=== PATIENT | male | born 1935 | race Caucasian/White ===

== ENCOUNTER 2021-12-17 17:13 | Inpatient (IN) ==
[2021-12-17 18:11] LABS: Basophils # 0.1 K/mcL (0.0-0.2); Basophils % 0.5 %; Eosinophils # 0.2 K/mcL (0.0-0.6); Eosinophils % 1.6 %; Hematocrit 33.4 % (37.5-50.1); Hemoglobin 11.1 g/dL (12.9-16.9); Immature Granulocytes % 0.5 % (0-4); Lymphocytes # 1.1 K/mcL (0.6-4.6); Lymphocytes % 10.3 %; Mean Corpuscular HGB Conc 33.2 g/dL (31.6-35.5); Mean Corpuscular Hemoglobin 30.8 pg (28.0-33.3); Mean Corpuscular Volume 92.8 fL (83.0-100.0); Mean Platelet Volume 10.5 fL (9.4-12.4); Monocytes # 1.3 K/mcL (0.0-1.3); Monocytes % 12.1 %; Neutrophils # 8.1 K/mcL (1.6-8.9); Platelet Count 206 K/mcL (140-400); Red Cell Distribution Width 12.7 % (11.5-14.5); White Blood Count 10.8 K/mcL (4.3-11.1)
[2021-12-17 18:33] LABS: Calcium 9.1 mg/dL (8.6-10.3); Potassium 3.6 mEq/L (3.5-5.1)
[2021-12-17 18:52] LABS: Thyroid Stimulating Hormone 5.964 mcIU/mL (0.340-5.600); Troponin I 0.05 ng/mL (< 0.04)
[2021-12-17] MEDS ORDERED: *HR* Metoprolol 5 MG/5 ML VIAL IVP ONE (20:13)
[2021-12-17] MEDS ORDERED: Aspirin 81 MG TAB.CHEW PO ONE (20:14)
[2021-12-17] MEDS ORDERED: Naloxone 0.4 MG/ML INJ IVP PRN (20:52)
[2021-12-17] MEDS ORDERED: Perflutren Lipid Microsphere 1.3 ML in 0.9 % Sodium Chloride 8.7 ML IVP PRN (21:00)
[2021-12-17] MEDS ORDERED: *HR* Heparin 5,000 UNIT/ML VIAL IVP PRN ×2 (21:59)
[2021-12-17] MEDS: Heparin 25,000UNIT/250ML 1/2NS 25,000 UNIT/250 ML IV.SOLN IVC SCH (23:35)
[2021-12-18] MEDS ORDERED: *HR* Metoprolol 5 MG/5 ML VIAL IVP ONE (03:04)
[2021-12-18] MEDS ORDERED: Dextrose Gel 15 GM/37.5 ML TUBE PO PRN ×2 (04:06)
[2021-12-18] MEDS ORDERED: D5% in Water 1,000 ML IVC PRN (04:06)
[2021-12-18] MEDS ORDERED: *HR* Dextrose 50 % in Water (Syg) 50 ML SYRINGE IVP PRN (04:06)
[2021-12-18 05:25] LABS: Basophils # 0.1 K/mcL (0.0-0.2); Basophils % 0.5 %; Eosinophils # 0.3 K/mcL (0.0-0.6); Eosinophils % 2.9 %; Hematocrit 31.9 % (37.5-50.1); Hemoglobin 10.8 g/dL (12.9-16.9); Immature Granulocytes % 0.6 % (0-4); Lymphocytes # 1.4 K/mcL (0.6-4.6); Mean Corpuscular HGB Conc 33.9 g/dL (31.6-35.5); Mean Corpuscular Hemoglobin 31.1 pg (28.0-33.3); Mean Corpuscular Volume 91.9 fL (83.0-100.0); Mean Platelet Volume 10.7 fL (9.4-12.4); Monocytes # 1.3 K/mcL (0.0-1.3); Monocytes % 12.5 %; Neutrophils # 7.3 K/mcL (1.6-8.9); Platelet Count 208 K/mcL (140-400); Red Blood Count 3.47 M/mcL (4.19-5.50); Red Cell Distribution Width 12.5 % (11.5-14.5); Segmented Neutrophils % 70.5 %; White Blood Count 10.4 K/mcL (4.3-11.1)
[2021-12-18 05:37] LABS: INR 1.3
[2021-12-18 05:47] LABS: Albumin/Globulin Ratio 1.3 (1.1-2.2); Bilirubin,Total 0.3 mg/dL (0.3-1.0); Calcium 8.6 mg/dL (8.6-10.3); Globulin 2.3 g/dL (2.4-3.5); Magnesium 1.7 mg/dL (1.6-2.6); Phosphorous 3.2 mg/dL (2.7-4.5); Potassium 3.4 mEq/L (3.5-5.1); Total Protein 5.3 g/dL (6.4-8.9)
[2021-12-18 05:55] LABS: % Iron Saturation 34 % (20-55); Iron 90 mcg/dL (65-175); Transferrin 187 mg/dL (203-362)
[2021-12-18 06:13] LABS: Ferritin 94 ng/mL (20-250)
[2021-12-18] MEDS: Insulin LISPRO 300 UNITS/3 ML VIAL SUBQ SCH ×3 (08:45→16:59)
[2021-12-18] MEDS: Aspirin 81 MG TAB.CHEW PO SCH (08:51)
[2021-12-18 13:39] LABS: Estimated Average Glucose 180 mg/dl; Hemoglobin A1C 7.9 %
[2021-12-18] MEDS: Heparin 25,000UNIT/250ML 1/2NS 25,000 UNIT/250 ML IV.SOLN IVC SCH (21:39)
[2021-12-19] MEDS: Insulin LISPRO 300 UNITS/3 ML VIAL SUBQ SCH ×3 (07:51→17:36)
[2021-12-19 08:14] LABS: Basophils # 0.1 K/mcL (0.0-0.2); Basophils % 0.7 %; Eosinophils # 0.3 K/mcL (0.0-0.6); Eosinophils % 2.5 %; Hematocrit 32.1 % (37.5-50.1); Hemoglobin 10.9 g/dL (12.9-16.9); Immature Granulocytes % 0.4 % (0-4); Lymphocytes # 1.3 K/mcL (0.6-4.6); Lymphocytes % 12.7 %; Mean Corpuscular Hemoglobin 31.3 pg (28.0-33.3); Mean Corpuscular Volume 92.2 fL (83.0-100.0); Mean Platelet Volume 10.8 fL (9.4-12.4); Monocytes # 1.2 K/mcL (0.0-1.3); Monocytes % 11.5 %; Neutrophils # 7.4 K/mcL (1.6-8.9); Platelet Count 194 K/mcL (140-400); Red Blood Count 3.48 M/mcL (4.19-5.50); Red Cell Distribution Width 12.7 % (11.5-14.5); Segmented Neutrophils % 72.2 %; White Blood Count 10.2 K/mcL (4.3-11.1)
[2021-12-19 08:33] LABS: Calcium 8.5 mg/dL (8.6-10.3); Magnesium 1.8 mg/dL (1.6-2.6); Potassium 3.4 mEq/L (3.5-5.1)
[2021-12-19] MEDS ORDERED: hydroCHLOROthiazide 25 MG TABLET PO SCH (09:00)
[2021-12-19] MEDS ORDERED: ALOGLIPTIN BENZOATE 6.25 MG PO SCH (09:00)
[2021-12-19] MEDS ORDERED: lisinopriL 20 MG TABLET PO SCH (09:00)
[2021-12-19] MEDS: Aspirin 81 MG TAB.CHEW PO SCH (09:31)
[2021-12-19] MEDS: NIFEdipine XL (24 HR) 30 MG TAB.ER.24 PO SCH (09:31)
[2021-12-19] MEDS: Pregabalin 75 MG CAPSULE PO SCH ×2 (09:31→20:07)
[2021-12-19] MEDS ORDERED: Albumin 25% 25gram/100mL 25 GM/100 ML IV.SOLN IVPB SCH (09:51)
[2021-12-19] MEDS: Apixaban 2.5 MG TABLET PO SCH ×2 (10:14→20:07)
[2021-12-19] MEDS ORDERED: 0.9 % Sodium Chloride 1,000 ML IVC SCH (13:15)
[2021-12-19] MEDS: Albumin 25% 25gram/100mL 25 GM/100 ML IV.SOLN IVPB SCH (20:09)
[2021-12-20] MEDS: Albumin 25% 25gram/100mL 25 GM/100 ML IV.SOLN IVPB SCH (04:37)
[2021-12-20 06:17] LABS: Calcium 8.3 mg/dL (8.6-10.3); Magnesium 1.8 mg/dL (1.6-2.6); Potassium 3.5 mEq/L (3.5-5.1)
[2021-12-20] MEDS: NIFEdipine XL (24 HR) 30 MG TAB.ER.24 PO SCH (09:28)
[2021-12-20] MEDS: Pregabalin 75 MG CAPSULE PO SCH ×2 (09:28→21:49)
[2021-12-20] MEDS: hydrALAZINE 25 MG TABLET PO SCH ×3 (09:28→23:08)
[2021-12-20] MEDS: Aspirin 81 MG TAB.CHEW PO SCH (09:30)
[2021-12-20] MEDS: Apixaban 2.5 MG TABLET PO SCH ×2 (09:30→21:49)
[2021-12-20] MEDS: Insulin LISPRO 300 UNITS/3 ML VIAL SUBQ SCH ×3 (09:31→17:01)
[2021-12-20] MEDS ORDERED: Acetaminophen 325 MG TABLET PO ONE (14:01)
[2021-12-20 22:50] LABS: Bilirubin,Urine Negative (Negative); Blood,Urine Trace (Negative); Clarity,Urine Clear (Clear); Color,Urine Light-Yellow (Yellow); Glucose,Urine (UA) 150 mg/dL (Normal); Hyaline Casts,Urine Few per lpf (None Seen); Ketones,Urine Negative (Negative); Leukocyte Esterase,Urine Negative (Negative); Mucus,Urine Few per lpf (None-Few); Nitrite,Urine Negative (Negative); PH,Urine 6.5 pH Units (5.0-8.0); Protein,Urine >=600 mg/dL (Neg-Trace); RBC,Urine 0-3 per hpf (0-3); Specific Gravity,Urine 1.017 (1.010-1.025); Squamous Epithelial Cell,Urine Few per hpf (None-Few); Urobilinogen,Urine Normal (Normal); WBC,Urine 0-3 per hpf (0-3)
[2021-12-20 22:58] LABS: Sodium, Urine 47.9 mEq/L
[2021-12-20] MEDS: Insulin DETEMIR 100 UNIT/ML X5UNITS SUBQ SCH (23:07)
[2021-12-21 03:56] LABS: Calcium 7.9 mg/dL (8.6-10.3); Magnesium 1.9 mg/dL (1.6-2.6); Phosphorous 3.5 mg/dL (2.7-4.5); Potassium 3.5 mEq/L (3.5-5.1)
[2021-12-21 09:36] LABS: Uric Acid 7.3 mg/dL (2.3-7.6)
[2021-12-21] MEDS: Apixaban 2.5 MG TABLET PO SCH ×2 (10:19→20:26)
[2021-12-21] MEDS: hydrALAZINE 25 MG TABLET PO SCH ×2 (10:20→16:27)
[2021-12-21] MEDS: Aspirin 81 MG TAB.CHEW PO SCH (10:20)
[2021-12-21] MEDS: Insulin LISPRO 300 UNITS/3 ML VIAL SUBQ SCH ×3 (10:21→20:18)
[2021-12-21 10:50] LABS: Complement C3 114 mg/dL (87-200)
[2021-12-21] MEDS: Pregabalin 75 MG CAPSULE PO SCH (11:41)
[2021-12-21] MEDS: Sodium Bicarbonate 75 MEQ in 0.45 % Sodium Chloride 1,000 ML IVC SCH (11:41)
[2021-12-21] MEDS: NIFEdipine XL (24 HR) 30 MG TAB.ER.24 PO SCH (11:43)
[2021-12-21] MEDS ORDERED: Acetaminophen 325 MG TABLET PO ONE (14:55)
[2021-12-21 19:57] LABS: Influenza A PCR Negative (Negative); Influenza B PCR Negative (Negative); Resp. Syncytial Virus PCR Negative (Negative)
[2021-12-21 20:00] LABS: SARS-CoV-2 by PCR (In House) Negative (Negative)
[2021-12-21] MEDS: Insulin DETEMIR 100 UNIT/ML X5UNITS SUBQ SCH (20:25)
[2021-12-21] MEDS ORDERED: Morphine Sulfate 2 MG/ML SYRINGE IVP ONE (21:13)
[2021-12-22] MEDS ORDERED: *HR* Metoprolol 5 MG/5 ML VIAL IVP ONE (00:37)
[2021-12-22] MEDS: hydrALAZINE 25 MG TABLET PO SCH ×3 (00:40→15:14)
[2021-12-22] MEDS ORDERED: Sodium Bicarbonate 75 MEQ in 0.45 % Sodium Chloride 1,000 ML IVC SCH (03:00)
[2021-12-22 03:45] LABS: Calcium 7.3 mg/dL (8.6-10.3); Magnesium 1.7 mg/dL (1.6-2.6); Phosphorous 2.5 mg/dL (2.7-4.5); Potassium 3.3 mEq/L (3.5-5.1)
[2021-12-22 04:14] LABS: Protein/Creatinine Ratio,Urine 5.32 mg/mg (0.00-0.20)
[2021-12-22] MEDS: Apixaban 2.5 MG TABLET PO SCH ×2 (07:42→22:18)
[2021-12-22] MEDS: Aspirin 81 MG TAB.CHEW PO SCH (07:42)
[2021-12-22] MEDS: Pregabalin 75 MG CAPSULE PO SCH (07:42)
[2021-12-22] MEDS: NIFEdipine XL (24 HR) 30 MG TAB.ER.24 PO SCH (07:42)
[2021-12-22] MEDS: Insulin LISPRO 300 UNITS/3 ML VIAL SUBQ SCH ×3 (07:43→17:21)
[2021-12-22 09:08] LABS: Bacteria,Urine Few per hpf (None-Few); Bilirubin,Urine Negative (Negative); Blood,Urine Small (Negative); Clarity,Urine Turbid (Clear); Color,Urine Light-Yellow (Yellow); Glucose,Urine (UA) 150 mg/dL (Normal); Hyaline Casts,Urine Few per lpf (None Seen); Ketones,Urine Negative (Negative); Leukocyte Esterase,Urine Negative (Negative); Mucus,Urine Few per lpf (None-Few); Nitrite,Urine Negative (Negative); Protein,Urine >=600 mg/dL (Neg-Trace); Specific Gravity,Urine 1.016 (1.010-1.025); Squamous Epithelial Cell,Urine Few per hpf (None-Few); Urobilinogen,Urine Normal (Normal); WBC,Urine 0-3 per hpf (0-3)
[2021-12-22] MEDS ORDERED: levoFLOXacin 500 MG/100 ML 500 MG/100 ML BAG IVPB SCH (09:30)
[2021-12-22] MEDS ORDERED: *HR* FentaNYL (PF) 100 MCG/2 ML VIAL IVP ONE ×2 (09:53→11:07)
[2021-12-22] MEDS: Ondansetron 4 MG/2 ML VIAL IVP PRN (10:01)
[2021-12-22 10:35] LABS: Adenovirus Not Detected (Not Detect); Coronavirus 229E Not Detected (Not Detect); Coronavirus HKU1 Not Detected (Not Detect); Coronavirus NL63 Not Detected (Not Detect); Coronavirus OC43 Not Detected (Not Detect); SARS-CoV-2 Not Detected (Not Detect)
[2021-12-22 10:36] LABS: Bordetella Pertussis Not Detected (Not Detect); Chlamydophila pneumoniae Not Detected (Not Detect); Human Metapneumovirus Not Detected (Not Detect); Human Rhinovirus/Enterovirus Not Detected (Not Detect); Influenza A Subtype 2009 H1 Not Detected (Not Detect); Influenza B Not Detected (Not Detect); Mycoplasma pneumoniae Not Detected (Not Detect); Parainfluenza Virus 1 Not Detected (Not Detect); Parainfluenza Virus 2 Not Detected (Not Detect); Parainfluenza Virus 3 Not Detected (Not Detect); Parainfluenza Virus 4 Not Detected (Not Detect); Respiratory Syncytial Virus Not Detected (Not Detect)
[2021-12-22] MEDS ORDERED: 0.9 % Sodium Chloride 1,000 ML ONE (11:29)
[2021-12-22] MEDS ORDERED: Ipratropium/Albuterol Neb 3 ML ONE (11:32)
[2021-12-22] MEDS ORDERED: 0.9 % Sodium Chloride 500 ML IVC ONE ×2 (11:35→14:57)
[2021-12-22] MEDS ORDERED: Ipratropium/Albuterol Neb 3 ML IH PRN (11:38)
[2021-12-22 11:48] LABS: ABG Base Excess -9 mEq/L (-2 to 3); ABG HCO3 15 mEq/L (21-27); ABG Oxygen Saturation 96 % (95-98); ABG PCO2 26 mmHg (35-45); ABG PH 7.37 pH Units (7.32-7.45); ABG PO2 82 mmHg (85-104); ABG TCO2 15 mEq/L (20-26)
[2021-12-22] MEDS ORDERED: Ipratropium/Albuterol Neb 3 ML IH SCH ×2 (12:00→16:00)
[2021-12-22] MEDS: Albumin 25% 25gram/100mL 25 GM/100 ML IV.SOLN IVPB SCH ×2 (13:01→19:39)
[2021-12-22] MEDS ORDERED: 0.9 % Sodium Chloride 250 ML IVC ONE (13:02)
[2021-12-22] MEDS: Piperacillin/Tazobactam 3.375 GM in 0.9 % Sodium Chloride Mini Bag 100 ML IVPB SCH (13:12)
[2021-12-22 13:41] LABS: Basophils % 0.3 %; Hematocrit 26.8 % (37.5-50.1); Immature Granulocytes % 3.3 % (0-4); Lymphocytes # 0.6 K/mcL (0.6-4.6); Lymphocytes % 5.4 %; Mean Corpuscular HGB Conc 32.5 g/dL (31.6-35.5); Mean Corpuscular Hemoglobin 31.4 pg (28.0-33.3); Mean Corpuscular Volume 96.8 fL (83.0-100.0); Mean Platelet Volume 11.2 fL (9.4-12.4); Monocytes # 1.2 K/mcL (0.0-1.3); Monocytes % 10.5 %; Neutrophils # 8.8 K/mcL (1.6-8.9); Platelet Count 116 K/mcL (140-400); Red Blood Count 2.77 M/mcL (4.19-5.50); Red Cell Distribution Width 13.5 % (11.5-14.5); Segmented Neutrophils % 80.5 %
[2021-12-22 13:51] LABS: Hemoglobin 8.7 g/dL (12.9-16.9)
[2021-12-22] MEDS: Ipratropium/Albuterol Neb 3 ML IH SCH ×2 (15:45→21:18)
[2021-12-22 16:34] LABS: Albumin 3.5 g/dL (3.5-5.7); Albumin/Globulin Ratio 1.9 (1.1-2.2); Bilirubin,Total 1.9 mg/dL (0.3-1.0); Calcium 6.6 mg/dL (8.6-10.3); Globulin 1.8 g/dL (2.4-3.5); Potassium 7.2 mEq/L (3.5-5.1); Total Protein 5.3 g/dL (6.4-8.9)
[2021-12-22 16:36] LABS: Albumin 3.5 g/dL (3.5-5.7); Albumin/Globulin Ratio 1.8 (1.1-2.2); Bilirubin,Indirect 0.9 mg/dL (0.0-1.0); Bilirubin,Total 1.9 mg/dL (0.3-1.0); Globulin 1.9 g/dL (2.4-3.5); Total Protein 5.4 g/dL (6.4-8.9)
[2021-12-22] MEDS ORDERED: Insulin Human Regular 10 UNIT in 0.9 % Sodium Chloride 10 ML IV ONE (16:58)
[2021-12-22] MEDS ORDERED: *HR* Dextrose 50 % in Water (Vial) 50 ML VIAL IVP ONE (16:58)
[2021-12-22] MEDS: Calcium Gluconate 1gm/50mL 1 GM/50 ML BAG IVPB SCH ×2 (17:52→18:50)
[2021-12-22] MEDS: Sodium Bicarbonate 75 MEQ in 0.45 % Sodium Chloride 1,000 ML IVC SCH ×2 (17:53→19:29)
[2021-12-22] MEDS ORDERED: 0.9 % Sodium Chloride 500 ML ONE (18:57)
[2021-12-22] MEDS ORDERED: 0.9 % Sodium Chloride 500 ML IV ONE (18:57)
[2021-12-22 21:04] LABS: Calcium 6.8 mg/dL (8.6-10.3); Potassium 5.3 mEq/L (3.5-5.1)
[2021-12-22] MEDS: Insulin DETEMIR 100 UNIT/ML X5UNITS SUBQ SCH (22:18)
[2021-12-23] MEDS: Piperacillin/Tazobactam 3.375 GM in 0.9 % Sodium Chloride Mini Bag 100 ML IVPB SCH ×2 (01:19→13:16)
[2021-12-23] MEDS: Ipratropium/Albuterol Neb 3 ML IH SCH ×4 (04:44→21:39)
[2021-12-23] MEDS: Albumin 25% 25gram/100mL 25 GM/100 ML IV.SOLN IVPB SCH (05:03)
[2021-12-23] MEDS: Sodium Bicarbonate 75 MEQ in 0.45 % Sodium Chloride 1,000 ML IVC SCH ×2 (05:03→22:49)
[2021-12-23 05:10] LABS: Basophils % 0.1 %
[2021-12-23 05:12] LABS: Eosinophils % 0.1 %; Hematocrit 21.8 % (37.5-50.1); Immature Platelets 6.6 % (1.1-6.1); Lymphocytes # 0.5 K/mcL (0.6-4.6); Lymphocytes % 6.1 %; Mean Corpuscular HGB Conc 32.1 g/dL (31.6-35.5); Mean Corpuscular Volume 96.5 fL (83.0-100.0); Mean Platelet Volume 11.8 fL (9.4-12.4); Monocytes # 0.7 K/mcL (0.0-1.3); Monocytes % 8.3 %; Red Blood Count 2.26 M/mcL (4.19-5.50); Red Cell Distribution Width 13.6 % (11.5-14.5); Segmented Neutrophils % 84.4 %; White Blood Count 8.8 K/mcL (4.3-11.1)
[2021-12-23 05:20] LABS: Calcium 6.4 mg/dL (8.6-10.3); Magnesium 1.9 mg/dL (1.6-2.6); Phosphorous 5.7 mg/dL (2.7-4.5); Potassium 4.7 mEq/L (3.5-5.1)
[2021-12-23 05:48] LABS: Alanine Aminotransferase 3941 Units/L (7-52); Albumin 3.1 g/dL (3.5-5.7); Albumin/Globulin Ratio 1.9 (1.1-2.2); Alkaline Phosphatase 55 Units/L (34-104); Aspartate Amino Transferase > 3000 Units/L (13-39); Bilirubin,Direct 0.8 mg/dL (0.0-0.2); Bilirubin,Indirect 0.4 mg/dL (0.0-1.0); Bilirubin,Total 1.2 mg/dL (0.3-1.0); Globulin 1.6 g/dL (2.4-3.5); Total Protein 4.7 g/dL (6.4-8.9)
[2021-12-23 06:11] LABS: Neutrophils # 7.4 K/mcL (1.6-8.9); Platelet Count 66 K/mcL (140-400)
[2021-12-23] MEDS: Insulin LISPRO 300 UNITS/3 ML VIAL SUBQ SCH ×3 (07:36→17:45)
[2021-12-23] MEDS: Apixaban 2.5 MG TABLET PO SCH (07:37)
[2021-12-23] MEDS: Pregabalin 75 MG CAPSULE PO SCH (07:38)
[2021-12-23] MEDS ORDERED: 0.9 % Sodium Chloride 250 ML IVC SCH (09:30)
[2021-12-23] MEDS ORDERED: Furosemide 20 MG/2 ML VIAL IVP ONE (09:36)
[2021-12-23] MEDS ORDERED: *HR* Propofol 200 MG/20 ML VIAL IVP ONE ×2 (10:26→12:07)
[2021-12-23] MEDS ORDERED: Lidocaine -MPF 2% 5 ML VIAL ONE (10:27)
[2021-12-23] MEDS: Pantoprazole 40 MG VIAL IVP SCH ×2 (10:41→20:36)
[2021-12-23] MEDS ORDERED: Lidocaine -MPF 4% 5 ML AMPUL ONE (12:46)
[2021-12-23 14:49] LABS: Kappa Qnt Free Light Chains 68.96 mg/L (3.30-19.40)
[2021-12-23 18:24] LABS: % Iron Saturation 103 % (20-55); Iron 198 mcg/dL (65-175); Transferrin 137 mg/dL (203-362)
[2021-12-23 18:54] LABS: Ferritin > 1500 ng/mL (20-250)
[2021-12-23 19:25] LABS: Hematocrit 26.3 % (37.5-50.1); Hemoglobin 8.9 g/dL (12.9-16.9)
[2021-12-23 19:54] LABS: INR 4.5; Prothrombin Time 49.8 Seconds (9.4-12.1)
[2021-12-23] MEDS ORDERED: Apixaban 2.5 MG TABLET PO SCH (21:00)
[2021-12-23] MEDS: Insulin DETEMIR 100 UNIT/ML X5UNITS SUBQ SCH (21:52)
[2021-12-23] MEDS ORDERED: Melatonin 3 MG TABLET PO ONE (22:09)
[2021-12-23 23:29] LABS: Folate > 22.3 ng/mL (3.0-16.0); Vitamin B12 > 1500 pg/mL (250-1100)
[2021-12-24] MEDS: Piperacillin/Tazobactam 3.375 GM in 0.9 % Sodium Chloride Mini Bag 100 ML IVPB SCH ×2 (02:20→11:41)
[2021-12-24] MEDS: Ipratropium/Albuterol Neb 3 ML IH SCH ×4 (04:18→22:09)
[2021-12-24 05:39] LABS: Monocytes % 7.1 %
[2021-12-24 05:41] LABS: Basophils % 0.3 %; Hematocrit 23.9 % (37.5-50.1); Immature Platelets 6.4 % (1.1-6.1); Lymphocytes # 0.4 K/mcL (0.6-4.6); Lymphocytes % 5.3 %; Mean Corpuscular HGB Conc 33.5 g/dL (31.6-35.5); Mean Corpuscular Hemoglobin 31.3 pg (28.0-33.3); Mean Corpuscular Volume 93.4 fL (83.0-100.0); Mean Platelet Volume 11.8 fL (9.4-12.4); Monocytes # 0.5 K/mcL (0.0-1.3); Neutrophils # 6.1 K/mcL (1.6-8.9); Platelet Count 45 K/mcL (140-400); Red Blood Count 2.56 M/mcL (4.19-5.50); Segmented Neutrophils % 85.3 %; White Blood Count 7.2 K/mcL (4.3-11.1)
[2021-12-24 05:58] LABS: INR 4.7; Prothrombin Time 51.6 Seconds (9.4-12.1)
[2021-12-24 06:23] LABS: Alanine Aminotransferase 4149 Units/L (7-52); Albumin 2.9 g/dL (3.5-5.7); Albumin/Globulin Ratio 1.8 (1.1-2.2); Alkaline Phosphatase 82 Units/L (34-104); Aspartate Amino Transferase > 3000 Units/L (13-39); BUN/Creatinine Ratio 13 (6-26); Bilirubin,Total 1.5 mg/dL (0.3-1.0); Blood Urea Nitrogen 81 mg/dL (8-23); Calcium 5.7 mg/dL (8.6-10.3); Carbon Dioxide 23 mEq/L (23-29); Chloride 100 mEq/L (98-107); Globulin 1.6 g/dL (2.4-3.5); Glucose 113 mg/dL (70-105); Osmolality,Calculated 309 (280-300); Potassium 3.8 mEq/L (3.5-5.1); Sodium 137 mEq/L (136-145); Total Protein 4.5 g/dL (6.4-8.9); eGFR For African Americans 11 (> 60); eGFR For Non-African Americans 9 (> 60)
[2021-12-24] MEDS ORDERED: Calcium Gluconate 1gm/50mL 1 GM/50 ML BAG IVPB ONE (07:14)
[2021-12-24] MEDS: Pregabalin 75 MG CAPSULE PO SCH ×2 (07:49→07:56)
[2021-12-24] MEDS: Insulin LISPRO 300 UNITS/3 ML VIAL SUBQ SCH ×3 (07:50→16:20)
[2021-12-24] MEDS: Pantoprazole 40 MG VIAL IVP SCH ×2 (07:56→21:01)
[2021-12-24] MEDS ORDERED: Aspirin 81 MG TAB.CHEW PO SCH (09:00)
[2021-12-24] MEDS ORDERED: 0.9 % Sodium Chloride 250 ML IVC SCH (09:45)
[2021-12-24] MEDS: Albumin 25% 25gram/100mL 25 GM/100 ML IV.SOLN IVPB SCH ×2 (11:40→19:11)
[2021-12-24] MEDS: Sodium Bicarbonate 75 MEQ in 0.45 % Sodium Chloride 1,000 ML IVC SCH (11:41)
[2021-12-24] MEDS: Furosemide 40 MG/4 ML VIAL IVP SCH ×2 (11:58→15:58)
[2021-12-24 11:59] LABS: Hepatitis B Surface Antibody < 3.10 mIU/mL
[2021-12-24 12:05] LABS: Hepatitis B Surface Antigen Nonreactive (Nonreactive)
[2021-12-24 12:35] LABS: Hepatitis B Core IgM Nonreactive (Nonreactive)
[2021-12-24 12:36] LABS: Hepatitis A Antibody IgM Nonreactive (Nonreactive); Hepatitis C Virus Antibody Nonreactive (Nonreactive)
[2021-12-24 13:23] LABS: VBG Ionized Calcium 0.38 mmol/L (1.15-1.35)
[2021-12-24] MEDS ORDERED: Furosemide 40 MG/4 ML VIAL IVP ONE (15:15)
[2021-12-24] MEDS ORDERED: *HR* Phytonadione 5 MG TABLET PO ONE (15:30)
[2021-12-24 21:00] LABS: Basophils % 0.3 %; Hematocrit 24.8 % (37.5-50.1); Immature Granulocytes % 1.9 % (0-4)
[2021-12-24 21:02] LABS: Eosinophils % 0.3 %; Hemoglobin 8.4 g/dL (12.9-16.9); Immature Platelets 5.6 % (1.1-6.1); Lymphocytes # 0.4 K/mcL (0.6-4.6); Lymphocytes % 5.8 %; Mean Corpuscular HGB Conc 33.9 g/dL (31.6-35.5); Mean Corpuscular Hemoglobin 31.7 pg (28.0-33.3); Mean Corpuscular Volume 93.6 fL (83.0-100.0); Mean Platelet Volume 10.3 fL (9.4-12.4); Monocytes # 0.5 K/mcL (0.0-1.3); Monocytes % 7.6 %; Neutrophils # 5.2 K/mcL (1.6-8.9); Red Blood Count 2.65 M/mcL (4.19-5.50); Red Cell Distribution Width 13.7 % (11.5-14.5); Segmented Neutrophils % 84.1 %; White Blood Count 6.2 K/mcL (4.3-11.1)
[2021-12-24 21:15] LABS: INR 2.9
[2021-12-24 21:20] LABS: Platelet Count 58 K/mcL (140-400)
[2021-12-25 03:34] LABS: Eosinophils % 0.3 %; Mean Corpuscular Volume 93.2 fL (83.0-100.0); Mean Platelet Volume 11.9 fL (9.4-12.4); Nucleated Red Blood Cells 0.3 /100 WBC (0); Red Cell Distribution Width 13.6 % (11.5-14.5)
[2021-12-25 03:36] LABS: Basophils % 0.3 %; Hematocrit 26.1 % (37.5-50.1); Hemoglobin 8.8 g/dL (12.9-16.9); Immature Granulocytes % 1.4 % (0-4); Immature Platelets 6.3 % (1.1-6.1); Lymphocytes # 0.3 K/mcL (0.6-4.6); Lymphocytes % 4.9 %; Mean Corpuscular HGB Conc 33.7 g/dL (31.6-35.5); Mean Corpuscular Hemoglobin 31.4 pg (28.0-33.3); Monocytes # 0.7 K/mcL (0.0-1.3); Monocytes % 10.3 %; Neutrophils # 5.4 K/mcL (1.6-8.9); Segmented Neutrophils % 82.8 %; White Blood Count 6.5 K/mcL (4.3-11.1)
[2021-12-25 03:37] LABS: Platelet Count 48 K/mcL (140-400)
[2021-12-25] MEDS: Ipratropium/Albuterol Neb 3 ML IH SCH ×4 (03:38→22:12)
[2021-12-25 03:42] LABS: INR 2.6
[2021-12-25 03:57] LABS: Alpha 2 Globulin (PEP) 0.92 g/dL (0.48-1.05); Beta Globulin (PEP) 0.66 g/dL (0.48-1.10)
[2021-12-25 05:41] LABS: Albumin 3.4 g/dL (3.5-5.7); Albumin/Globulin Ratio 2.1 (1.1-2.2); Alkaline Phosphatase 114 Units/L (34-104); BUN/Creatinine Ratio 12 (6-26); Bilirubin,Direct 1.3 mg/dL (0.0-0.2); Bilirubin,Indirect 0.8 mg/dL (0.0-1.0); Bilirubin,Total 2.1 mg/dL (0.3-1.0); Blood Urea Nitrogen 97 mg/dL (8-23); Calcium 6.6 mg/dL (8.6-10.3); Carbon Dioxide 18 mEq/L (23-29); Chloride 100 mEq/L (98-107); Globulin 1.6 g/dL (2.4-3.5); Glucose 88 mg/dL (70-105); Osmolality,Calculated 310 (280-300); Phosphorous 7.7 mg/dL (2.7-4.5); Sodium 135 mEq/L (136-145); eGFR For African Americans 8 (> 60); eGFR For Non-African Americans 6 (> 60)
[2021-12-25 06:33] LABS: Alanine Aminotransferase > 5000 Units/L (7-52); Aspartate Amino Transferase > 3000 Units/L (13-39)
[2021-12-25] MEDS: Insulin LISPRO 300 UNITS/3 ML VIAL SUBQ SCH ×3 (08:19→17:31)
[2021-12-25] MEDS: Furosemide 40 MG/4 ML VIAL IVP SCH (08:21)
[2021-12-25] MEDS: Pantoprazole 40 MG VIAL IVP SCH ×2 (08:21→22:18)
[2021-12-25] MEDS ORDERED: 0.9 % Sodium Chloride 250 ML IVC PRN (08:23)
[2021-12-25] MEDS ORDERED: *HR* Heparin 10,000 UNIT/10 ML VIAL IV PRN (08:23)
[2021-12-25] MEDS ORDERED: 0.9 % Sodium Chloride 2,000 ML PRIME SCH (08:30)
[2021-12-25] MEDS ORDERED: WATER IVC ONE ×3 (09:15→14:30)
[2021-12-25] MEDS ORDERED: D5 IVC ONE ×3 (09:15→14:30)
[2021-12-25] MEDS ORDERED: ACETYLCYSTEINE IVC ONE ×3 (09:15→14:30)
[2021-12-25 09:51] LABS: ANCA IFA Titer <1:20 (<1:20)
[2021-12-25 10:33] LABS: Immunoglobulin G 518 mg/dL (768-1632)
[2021-12-25 10:34] LABS: Immunoglobulin A 226 mg/dL (68-408); Immunoglobulin M 31 mg/dL (35-263)
[2021-12-25] MEDS: Calcium Gluconate 1gm/50mL 1 GM/50 ML BAG IVPB PRN (10:34)
[2021-12-25 10:41] LABS: ANA IgG by ELISA NONE DETECTED (None Detected)
[2021-12-25 10:47] LABS: IFE Reflexed IFE Done
[2021-12-25 10:48] LABS: ANCA IFA Pattern NONE DETECTED (None Detected); Serine Protease-3 Antibody 0 AU/mL (0-19)
[2021-12-25] MEDS ORDERED: 0.9 % Sodium Chloride 250 ML ONE (10:55)
[2021-12-25 11:13] LABS: Hematocrit 26.7 % (37.5-50.1); Mean Corpuscular HGB Conc 33.7 g/dL (31.6-35.5); Mean Corpuscular Hemoglobin 31.5 pg (28.0-33.3); Mean Corpuscular Volume 93.4 fL (83.0-100.0); Mean Platelet Volume 12.4 fL (9.4-12.4); Red Blood Count 2.86 M/mcL (4.19-5.50); Red Cell Distribution Width 13.7 % (11.5-14.5); White Blood Count 6.1 K/mcL (4.3-11.1)
[2021-12-25 11:14] LABS: Platelet Count 49 K/mcL (140-400)
[2021-12-25] MEDS: Albumin 25% 25gram/100mL 25 GM/100 ML IV.SOLN IVPB SCH ×2 (11:17→20:40)
[2021-12-25] MEDS ORDERED: *HR* Heparin 5,000 UNIT/ML VIAL ONE (11:20)
[2021-12-25] MEDS ORDERED: Furosemide 40 MG/4 ML VIAL IVP PRN (11:22)
[2021-12-25] MEDS: Ondansetron 4 MG/2 ML VIAL IVP PRN ×2 (11:32→20:19)
[2021-12-25] MEDS: Piperacillin/Tazobactam 3.375 GM in 0.9 % Sodium Chloride Mini Bag 100 ML IVPB SCH ×2 (12:28)
[2021-12-25 13:43] LABS: INR 2.4; Prothrombin Time 26.4 Seconds (9.4-12.1)
[2021-12-25] MEDS ORDERED: *HR* Metoprolol 5 MG/5 ML VIAL IVP PRN (16:29)
[2021-12-26] MEDS: Piperacillin/Tazobactam 3.375 GM in 0.9 % Sodium Chloride Mini Bag 100 ML IVPB SCH ×2 (00:43→14:01)
[2021-12-26] MEDS: Ipratropium/Albuterol Neb 3 ML IH SCH ×4 (03:38→22:08)
[2021-12-26 03:58] LABS: Basophils % 0.4 %; Eosinophils % 0.1 %; Hematocrit 26.8 % (37.5-50.1); Immature Granulocytes % 2.2 % (0-4); Immature Platelets 6.9 % (1.1-6.1); Lymphocytes # 0.4 K/mcL (0.6-4.6); Mean Corpuscular HGB Conc 33.6 g/dL (31.6-35.5); Mean Corpuscular Hemoglobin 30.7 pg (28.0-33.3); Mean Corpuscular Volume 91.5 fL (83.0-100.0); Mean Platelet Volume 12.4 fL (9.4-12.4); Monocytes % 13.2 %; Neutrophils # 5.8 K/mcL (1.6-8.9); Nucleated Red Blood Cells 0.4 /100 WBC (0); Red Blood Count 2.93 M/mcL (4.19-5.50); Red Cell Distribution Width 13.6 % (11.5-14.5); Segmented Neutrophils % 79.1 %; White Blood Count 7.3 K/mcL (4.3-11.1)
[2021-12-26 03:59] LABS: Platelet Count 56 K/mcL (140-400)
[2021-12-26 04:04] LABS: INR 2.4; Prothrombin Time 26.8 Seconds (9.4-12.1)
[2021-12-26 04:07] LABS: VBG Ionized Calcium 0.86 mmol/L (1.15-1.35)
[2021-12-26] MEDS: Calcium Gluconate 1gm/50mL 1 GM/50 ML BAG IVPB PRN (04:20)
[2021-12-26 04:39] LABS: Albumin 3.6 g/dL (3.5-5.7); Bilirubin,Direct 1.7 mg/dL (0.0-0.2); Bilirubin,Indirect 0.9 mg/dL (0.0-1.0); Bilirubin,Total 2.6 mg/dL (0.3-1.0); Calcium 7.5 mg/dL (8.6-10.3); Globulin 1.8 g/dL (2.4-3.5); Phosphorous 7.4 mg/dL (2.7-4.5); Potassium 5.1 mEq/L (3.5-5.1); Total Protein 5.4 g/dL (6.4-8.9)
[2021-12-26] MEDS: Albumin 25% 25gram/100mL 25 GM/100 ML IV.SOLN IVPB SCH ×2 (07:58→22:50)
[2021-12-26] MEDS ORDERED: Calcium Gluconate 1gm/50mL 1 GM/50 ML BAG IVPB SCH (08:00)
[2021-12-26] MEDS: Insulin LISPRO 300 UNITS/3 ML VIAL SUBQ SCH ×3 (08:02→17:24)
[2021-12-26] MEDS: Pantoprazole 40 MG VIAL IVP SCH ×2 (09:12→22:48)
[2021-12-26] MEDS ORDERED: 0.9 % Sodium Chloride 250 ML IVC PRN (10:25)
[2021-12-26] MEDS ORDERED: *HR* Heparin 10,000 UNIT/10 ML VIAL IV PRN (10:25)
[2021-12-27] MEDS: Ondansetron 4 MG/2 ML VIAL IVP PRN (03:11)
[2021-12-27] MEDS: Piperacillin/Tazobactam 3.375 GM in 0.9 % Sodium Chloride Mini Bag 100 ML IVPB SCH ×2 (03:12→13:27)
[2021-12-27] MEDS: Ipratropium/Albuterol Neb 3 ML IH SCH ×4 (03:57→22:40)
[2021-12-27 04:30] LABS: VBG Ionized Calcium 0.99 mmol/L (1.15-1.35)
[2021-12-27 04:33] LABS: Basophils % 0.4 %; Immature Granulocytes % 2.3 % (0-4)
[2021-12-27 04:35] LABS: Eosinophils % 0.3 %; Hematocrit 26.3 % (37.5-50.1); Immature Platelets 10.1 % (1.1-6.1); Lymphocytes # 0.4 K/mcL (0.6-4.6); Lymphocytes % 4.6 %; Mean Corpuscular HGB Conc 34.2 g/dL (31.6-35.5); Mean Corpuscular Hemoglobin 31.4 pg (28.0-33.3); Mean Corpuscular Volume 91.6 fL (83.0-100.0); Mean Platelet Volume 12.8 fL (9.4-12.4); Monocytes # 1.3 K/mcL (0.0-1.3); Monocytes % 14.9 %; Nucleated Red Blood Cells 0.3 /100 WBC (0); Red Blood Count 2.87 M/mcL (4.19-5.50); Red Cell Distribution Width 13.5 % (11.5-14.5); Segmented Neutrophils % 77.5 %
[2021-12-27 04:50] LABS: INR 1.9; Platelet Count 61 K/mcL (140-400); Prothrombin Time 21.6 Seconds (9.4-12.1)
[2021-12-27 05:06] LABS: Albumin/Globulin Ratio 2.5 (1.1-2.2); Bilirubin,Direct 1.6 mg/dL (0.0-0.2); Bilirubin,Indirect 1.2 mg/dL (0.0-1.0); Bilirubin,Total 2.8 mg/dL (0.3-1.0); Calcium 8.4 mg/dL (8.6-10.3); Globulin 1.6 g/dL (2.4-3.5); Magnesium 2.2 mg/dL (1.6-2.6); Phosphorous 6.4 mg/dL (2.7-4.5); Potassium 4.4 mEq/L (3.5-5.1); Total Protein 5.6 g/dL (6.4-8.9)
[2021-12-27] MEDS ORDERED: *HR* LORazepam 0.5 MG TABLET PO ONE (05:59)
[2021-12-27] MEDS ORDERED: *HR* Heparin 10,000 UNIT/10 ML VIAL IV PRN (08:01)
[2021-12-27] MEDS ORDERED: 0.9 % Sodium Chloride 250 ML IVC PRN (08:01)
[2021-12-27] MEDS ORDERED: Furosemide 80 MG in 0.9 % Sodium Chloride 50 ML IVPB ONE (09:00)
[2021-12-27] MEDS: Pantoprazole 40 MG VIAL IVP SCH (10:01)
[2021-12-27] MEDS: Insulin LISPRO 300 UNITS/3 ML VIAL SUBQ SCH ×3 (10:03→18:04)
[2021-12-27] MEDS: Albumin 25% 25gram/100mL 25 GM/100 ML IV.SOLN IVPB SCH ×2 (13:25→21:50)
[2021-12-28] MEDS: Piperacillin/Tazobactam 3.375 GM in 0.9 % Sodium Chloride Mini Bag 100 ML IVPB SCH ×2 (00:52→12:54)
[2021-12-28 03:44] LABS: Eosinophils % 0.5 %; Hemoglobin 8.3 g/dL (12.9-16.9); Monocytes % 15.2 %; Nucleated Red Blood Cells 0.3 /100 WBC (0); Red Cell Distribution Width 13.6 % (11.5-14.5)
[2021-12-28 03:46] LABS: Basophils % 0.4 %; Eosinophils # 0.1 K/mcL (0.0-0.6); Hematocrit 24.3 % (37.5-50.1); Immature Granulocytes % 2.7 % (0-4); Immature Platelets 10.5 % (1.1-6.1); Lymphocytes # 0.5 K/mcL (0.6-4.6); Lymphocytes % 5.3 %; Mean Corpuscular HGB Conc 34.2 g/dL (31.6-35.5); Mean Corpuscular Hemoglobin 31.3 pg (28.0-33.3); Mean Corpuscular Volume 91.7 fL (83.0-100.0); Mean Platelet Volume 12.5 fL (9.4-12.4); Monocytes # 1.4 K/mcL (0.0-1.3); Neutrophils # 7.2 K/mcL (1.6-8.9); Red Blood Count 2.65 M/mcL (4.19-5.50); Segmented Neutrophils % 75.9 %; White Blood Count 9.5 K/mcL (4.3-11.1)
[2021-12-28] MEDS: Ipratropium/Albuterol Neb 3 ML IH SCH ×4 (03:48→22:40)
[2021-12-28 03:50] LABS: Platelet Count 68 K/mcL (140-400)
[2021-12-28 04:29] LABS: Albumin 4.1 g/dL (3.5-5.7); Albumin/Globulin Ratio 2.9 (1.1-2.2); Bilirubin,Direct 1.5 mg/dL (0.0-0.2); Bilirubin,Indirect 1.2 mg/dL (0.0-1.0); Bilirubin,Total 2.7 mg/dL (0.3-1.0); Calcium 8.7 mg/dL (8.6-10.3); Globulin 1.4 g/dL (2.4-3.5); Magnesium 2.3 mg/dL (1.6-2.6); Phosphorous 5.3 mg/dL (2.7-4.5); Potassium 4.1 mEq/L (3.5-5.1); Total Protein 5.5 g/dL (6.4-8.9)
[2021-12-28] MEDS: Insulin LISPRO 300 UNITS/3 ML VIAL SUBQ SCH ×3 (07:53→17:26)
[2021-12-28] MEDS: Albumin 25% 25gram/100mL 25 GM/100 ML IV.SOLN IVPB SCH (07:54)
[2021-12-28] MEDS ORDERED: *HR* Heparin 10,000 UNIT/10 ML VIAL IV PRN (08:31)
[2021-12-28] MEDS ORDERED: 0.9 % Sodium Chloride 250 ML IVC PRN (08:31)
[2021-12-28] MEDS: NIFEdipine XL (24 HR) 30 MG TAB.ER.24 PO SCH (12:54)
[2021-12-28] MEDS: Melatonin 3 MG TABLET PO PRN (20:07)
[2021-12-29] MEDS: Piperacillin/Tazobactam 3.375 GM in 0.9 % Sodium Chloride Mini Bag 100 ML IVPB SCH (00:20)
[2021-12-29] MEDS: Ipratropium/Albuterol Neb 3 ML IH SCH ×4 (03:57→22:43)
[2021-12-29 04:49] LABS: INR 1.6; Prothrombin Time 17.9 Seconds (9.4-12.1)
[2021-12-29 05:18] LABS: Albumin 4.3 g/dL (3.5-5.7); Albumin/Globulin Ratio 2.7 (1.1-2.2); Bilirubin,Direct 1.3 mg/dL (0.0-0.2); Bilirubin,Indirect 1.3 mg/dL (0.0-1.0); Bilirubin,Total 2.6 mg/dL (0.3-1.0); Globulin 1.6 g/dL (2.4-3.5); Potassium 4.2 mEq/L (3.5-5.1); Total Protein 5.9 g/dL (6.4-8.9)
[2021-12-29] MEDS: Insulin LISPRO 300 UNITS/3 ML VIAL SUBQ SCH ×3 (08:01→16:11)
[2021-12-29] MEDS: NIFEdipine XL (24 HR) 30 MG TAB.ER.24 PO SCH (08:01)
[2021-12-29] MEDS ORDERED: 0.9 % Sodium Chloride 250 ML IVC PRN (08:01)
[2021-12-29] MEDS ORDERED: *HR* Heparin 10,000 UNIT/10 ML VIAL IV PRN (08:13)
[2021-12-29] MEDS: *HR* OxyCODONE Immed Rel 5 MG TABLET PO PRN (16:11)
[2021-12-29] MEDS: Melatonin 3 MG TABLET PO PRN (19:56)
[2021-12-30 01:56] LABS: Hematocrit 27.2 % (37.5-50.1); Hemoglobin 9.1 g/dL (12.9-16.9); Mean Corpuscular HGB Conc 33.5 g/dL (31.6-35.5); Mean Corpuscular Hemoglobin 31.4 pg (28.0-33.3); Mean Corpuscular Volume 93.8 fL (83.0-100.0); Platelet Count 102 K/mcL (140-400); Red Cell Distribution Width 14.5 % (11.5-14.5); White Blood Count 11.2 K/mcL (4.3-11.1)
[2021-12-30 02:33] LABS: Albumin 4.1 g/dL (3.5-5.7); Albumin/Globulin Ratio 2.2 (1.1-2.2); Bilirubin,Direct 1.2 mg/dL (0.0-0.2); Bilirubin,Indirect 1.2 mg/dL (0.0-1.0); Bilirubin,Total 2.4 mg/dL (0.3-1.0); Calcium 9.1 mg/dL (8.6-10.3); Globulin 1.9 g/dL (2.4-3.5); Potassium 4.7 mEq/L (3.5-5.1)
[2021-12-30] MEDS: Ipratropium/Albuterol Neb 3 ML IH SCH ×4 (03:24→21:41)
[2021-12-30] MEDS: Insulin LISPRO 300 UNITS/3 ML VIAL SUBQ SCH ×3 (08:02→16:10)
[2021-12-30] MEDS: NIFEdipine XL (24 HR) 30 MG TAB.ER.24 PO SCH (08:03)
[2021-12-30] MEDS: *HR* OxyCODONE Immed Rel 5 MG TABLET PO PRN (14:43)
[2021-12-30] MEDS: Insulin DETEMIR 100 UNIT/ML X5UNITS SUBQ SCH (21:51)
[2021-12-31 04:12] LABS: Hematocrit 26.9 % (37.5-50.1); Hemoglobin 9.1 g/dL (12.9-16.9); Mean Corpuscular HGB Conc 33.8 g/dL (31.6-35.5); Mean Corpuscular Hemoglobin 32.2 pg (28.0-33.3); Mean Corpuscular Volume 95.1 fL (83.0-100.0); Mean Platelet Volume 11.8 fL (9.4-12.4); Platelet Count 100 K/mcL (140-400); Red Blood Count 2.83 M/mcL (4.19-5.50); Red Cell Distribution Width 15.2 % (11.5-14.5); White Blood Count 12.6 K/mcL (4.3-11.1)
[2021-12-31] MEDS: Ipratropium/Albuterol Neb 3 ML IH SCH ×4 (04:24→21:32)
[2021-12-31 04:45] LABS: Calcium 8.8 mg/dL (8.6-10.3); Potassium 5.3 mEq/L (3.5-5.1)
[2021-12-31] MEDS: NIFEdipine XL (24 HR) 30 MG TAB.ER.24 PO SCH (08:56)
[2021-12-31] MEDS: Insulin LISPRO 300 UNITS/3 ML VIAL SUBQ SCH ×3 (10:02→15:55)
[2021-12-31] MEDS: Insulin DETEMIR 100 UNIT/ML X5UNITS SUBQ SCH (19:58)
[2022-01-01] MEDS: Ipratropium/Albuterol Neb 3 ML IH SCH ×4 (03:40→21:46)
[2022-01-01 04:37] LABS: Basophils % 0.3 %; Eosinophils % 0.3 %; Hemoglobin 8.9 g/dL (12.9-16.9); Immature Granulocytes % 0.9 % (0-4)
[2022-01-01 04:39] LABS: Lymphocytes # 0.6 K/mcL (0.6-4.6); Lymphocytes % 5.4 %; Mean Corpuscular Hemoglobin 31.6 pg (28.0-33.3); Mean Corpuscular Volume 95.7 fL (83.0-100.0); Mean Platelet Volume 11.6 fL (9.4-12.4); Monocytes # 1.7 K/mcL (0.0-1.3); Monocytes % 14.2 %; Neutrophils # 9.2 K/mcL (1.6-8.9); Red Blood Count 2.82 M/mcL (4.19-5.50); Red Cell Distribution Width 15.1 % (11.5-14.5); Segmented Neutrophils % 78.9 %; White Blood Count 11.6 K/mcL (4.3-11.1)
[2022-01-01 04:46] LABS: Platelet Count 95 K/mcL (140-400)
[2022-01-01 04:54] LABS: Calcium 8.5 mg/dL (8.6-10.3); Potassium 5.3 mEq/L (3.5-5.1)
[2022-01-01] MEDS: Insulin LISPRO 300 UNITS/3 ML VIAL SUBQ SCH ×3 (07:57→16:56)
[2022-01-01] MEDS: NIFEdipine XL (24 HR) 30 MG TAB.ER.24 PO SCH (08:27)
[2022-01-01] MEDS ORDERED: *HR* Heparin 10,000 UNIT/10 ML VIAL IV PRN (09:14)
[2022-01-01] MEDS ORDERED: 0.9 % Sodium Chloride 250 ML IVC PRN (09:14)
[2022-01-01] MEDS ORDERED: Albumin 25% 25gram/100mL 25 GM/100 ML IV.SOLN IVPB ONE (10:05)
[2022-01-01] MEDS: *HR* OxyCODONE Immed Rel 5 MG TABLET PO PRN (16:56)
[2022-01-01] MEDS: Insulin DETEMIR 100 UNIT/ML X5UNITS SUBQ SCH (20:31)
[2022-01-02] MEDS: Ipratropium/Albuterol Neb 3 ML IH SCH ×4 (03:59→22:45)
[2022-01-02 06:32] LABS: Basophils % 0.2 %; Eosinophils # 0.1 K/mcL (0.0-0.6); Eosinophils % 0.5 %; Hematocrit 28.1 % (37.5-50.1); Hemoglobin 9.3 g/dL (12.9-16.9); Immature Granulocytes % 0.7 % (0-4); Lymphocytes # 0.6 K/mcL (0.6-4.6); Mean Corpuscular HGB Conc 33.1 g/dL (31.6-35.5); Mean Corpuscular Volume 96.6 fL (83.0-100.0); Mean Platelet Volume 11.5 fL (9.4-12.4); Monocytes # 1.8 K/mcL (0.0-1.3); Monocytes % 14.9 %; Neutrophils # 9.5 K/mcL (1.6-8.9); Platelet Count 107 K/mcL (140-400); Red Blood Count 2.91 M/mcL (4.19-5.50); Red Cell Distribution Width 15.8 % (11.5-14.5); Segmented Neutrophils % 78.7 %; White Blood Count 12.1 K/mcL (4.3-11.1)
[2022-01-02 06:53] LABS: Albumin 3.7 g/dL (3.5-5.7); Albumin/Globulin Ratio 1.9 (1.1-2.2); Bilirubin,Total 1.6 mg/dL (0.3-1.0); Calcium 8.3 mg/dL (8.6-10.3); Potassium 5.1 mEq/L (3.5-5.1); Total Protein 5.7 g/dL (6.4-8.9)
[2022-01-02] MEDS: Insulin LISPRO 300 UNITS/3 ML VIAL SUBQ SCH ×3 (10:25→17:13)
[2022-01-02] MEDS: NIFEdipine XL (24 HR) 30 MG TAB.ER.24 PO SCH (10:28)
[2022-01-02 10:46] LABS: Hepatitis B Core IgM Nonreactive (Nonreactive)
[2022-01-02 10:49] LABS: Hepatitis B Surface Antibody 44.25 mIU/mL
[2022-01-02] MEDS ORDERED: *HR* Heparin 5,000 UNIT/ML VIAL ONE (13:01)
[2022-01-02] MEDS ORDERED: CeFAZolin Syr 2,000MG/20 ML 2,000 MG/20 ML SYRINGE IVPB ONE (14:27)
[2022-01-02 15:04] LABS: Amorphous Sediment,Urine Few per hpf (None-Few); Bacteria,Urine Few per hpf (None-Few); Bilirubin,Urine Negative (Negative); Blood,Urine Large (Negative); Clarity,Urine Turbid (Clear); Color,Urine Yellow (Yellow); Glucose,Urine (UA) Normal (Normal); Ketones,Urine Negative (Negative); Leukocyte Esterase,Urine Large (Negative); Mucus,Urine Few per lpf (None-Few); Nitrite,Urine Negative (Negative); Protein,Urine >=300 mg/dL (Neg-Trace); RBC,Urine 50-100 per hpf (0-3); Specific Gravity,Urine 1.011 (1.010-1.025); Squamous Epithelial Cell,Urine Few per hpf (None-Few); Urobilinogen,Urine Normal (Normal); WBC,Urine TNTC per hpf (0-3)
[2022-01-02] MEDS: Insulin DETEMIR 100 UNIT/ML X5UNITS SUBQ SCH (20:58)
[2022-01-03] MEDS: Ipratropium/Albuterol Neb 3 ML IH SCH ×4 (03:07→22:28)
[2022-01-03] MEDS: Insulin LISPRO 300 UNITS/3 ML VIAL SUBQ SCH ×3 (07:16→17:32)
[2022-01-03] MEDS: NIFEdipine XL (24 HR) 30 MG TAB.ER.24 PO SCH (08:14)
[2022-01-03] MEDS ORDERED: 0.9 % Sodium Chloride 250 ML IVC PRN (08:57)
[2022-01-03] MEDS ORDERED: *HR* Heparin 10,000 UNIT/10 ML VIAL IV PRN (08:57)
[2022-01-03 09:04] LABS: Albumin 3.6 g/dL (3.5-5.7); Albumin/Globulin Ratio 1.7 (1.1-2.2); Bilirubin,Total 1.3 mg/dL (0.3-1.0); Calcium 8.4 mg/dL (8.6-10.3); Globulin 2.1 g/dL (2.4-3.5); Potassium 4.7 mEq/L (3.5-5.1); Total Protein 5.7 g/dL (6.4-8.9)
[2022-01-03 10:07] LABS: Basophils % 0.2 %; Eosinophils # 0.1 K/mcL (0.0-0.6); Eosinophils % 1.1 %; Hematocrit 28.6 % (37.5-50.1); Hemoglobin 9.6 g/dL (12.9-16.9); Immature Granulocytes % 0.5 % (0-4); Lymphocytes # 0.5 K/mcL (0.6-4.6); Lymphocytes % 4.7 %; Mean Corpuscular HGB Conc 33.6 g/dL (31.6-35.5); Mean Corpuscular Hemoglobin 31.8 pg (28.0-33.3); Mean Corpuscular Volume 94.7 fL (83.0-100.0); Mean Platelet Volume 11.3 fL (9.4-12.4); Monocytes % 17.8 %; Neutrophils # 8.3 K/mcL (1.6-8.9); Platelet Count 122 K/mcL (140-400); Red Blood Count 3.02 M/mcL (4.19-5.50); Red Cell Distribution Width 15.7 % (11.5-14.5); Segmented Neutrophils % 75.7 %
[2022-01-03 10:26] LABS: Calcium 8.2 mg/dL (8.6-10.3); Potassium 4.7 mEq/L (3.5-5.1)
[2022-01-03] MEDS: Apixaban 5 MG TABLET PO SCH ×2 (14:57→20:20)
[2022-01-03] MEDS: *HR* OxyCODONE Immed Rel 5 MG TABLET PO PRN (17:31)
[2022-01-03] MEDS: Insulin DETEMIR 100 UNIT/ML X5UNITS SUBQ SCH (20:20)
[2022-01-04] MEDS: Ipratropium/Albuterol Neb 3 ML IH SCH ×4 (04:21→22:48)
[2022-01-04] MEDS: Insulin LISPRO 300 UNITS/3 ML VIAL SUBQ SCH ×3 (07:48→16:51)
[2022-01-04] MEDS: NIFEdipine XL (24 HR) 30 MG TAB.ER.24 PO SCH (08:45)
[2022-01-04] MEDS: Apixaban 5 MG TABLET PO SCH ×2 (08:45→20:34)
[2022-01-04 10:01] LABS: Hematocrit 28.8 % (37.5-50.1); Hemoglobin 9.5 g/dL (12.9-16.9); Mean Corpuscular Hemoglobin 31.9 pg (28.0-33.3); Mean Corpuscular Volume 96.6 fL (83.0-100.0); Mean Platelet Volume 11.2 fL (9.4-12.4); Platelet Count 123 K/mcL (140-400); Red Blood Count 2.98 M/mcL (4.19-5.50); Red Cell Distribution Width 15.9 % (11.5-14.5); White Blood Count 11.4 K/mcL (4.3-11.1)
[2022-01-04 10:18] LABS: Calcium 7.9 mg/dL (8.6-10.3); Magnesium 2.3 mg/dL (1.6-2.6); Phosphorous 6.6 mg/dL (2.7-4.5); Potassium 4.5 mEq/L (3.5-5.1)
[2022-01-04] MEDS: Calcium Acetate 667 MG CAPSULE PO SCH ×2 (12:08→16:51)
[2022-01-04] MEDS: Pregabalin 25 MG CAPSULE PO SCH (20:33)
[2022-01-04] MEDS: Insulin DETEMIR 100 UNIT/ML X5UNITS SUBQ SCH (20:33)
[2022-01-04] MEDS: *HR* OxyCODONE Immed Rel 5 MG TABLET PO PRN (20:34)
[2022-01-05] MEDS: Ipratropium/Albuterol Neb 3 ML IH SCH ×4 (04:10→22:17)
[2022-01-05 04:37] LABS: Hematocrit 29.2 % (37.5-50.1); Hemoglobin 9.6 g/dL (12.9-16.9); Mean Corpuscular HGB Conc 32.9 g/dL (31.6-35.5); Mean Corpuscular Hemoglobin 31.8 pg (28.0-33.3); Mean Corpuscular Volume 96.7 fL (83.0-100.0); Platelet Count 125 K/mcL (140-400); Red Blood Count 3.02 M/mcL (4.19-5.50); Red Cell Distribution Width 15.9 % (11.5-14.5); White Blood Count 10.6 K/mcL (4.3-11.1)
[2022-01-05 04:59] LABS: Magnesium 2.4 mg/dL (1.6-2.6); Phosphorous 7.7 mg/dL (2.7-4.5); Potassium 4.7 mEq/L (3.5-5.1)
[2022-01-05] MEDS: *HR* OxyCODONE Immed Rel 5 MG TABLET PO PRN ×2 (06:09→15:24)
[2022-01-05] MEDS: Insulin LISPRO 300 UNITS/3 ML VIAL SUBQ SCH ×3 (07:52→17:30)
[2022-01-05] MEDS: NIFEdipine XL (24 HR) 30 MG TAB.ER.24 PO SCH (07:53)
[2022-01-05] MEDS: Calcium Acetate 667 MG CAPSULE PO SCH ×3 (07:53→17:33)
[2022-01-05] MEDS: Apixaban 5 MG TABLET PO SCH ×2 (07:53→20:32)
[2022-01-05] MEDS ORDERED: 0.9 % Sodium Chloride 250 ML IVC PRN (07:54)
[2022-01-05] MEDS ORDERED: *HR* Heparin 10,000 UNIT/10 ML VIAL IV PRN (07:54)
[2022-01-05 17:10] LABS: Hepatitis B Surface Antibody 39.59 mIU/mL
[2022-01-05 17:22] LABS: Hepatitis B Surface Antigen Nonreactive (Nonreactive)
[2022-01-05] MEDS: Pregabalin 25 MG CAPSULE PO SCH (20:31)
[2022-01-05] MEDS: Insulin DETEMIR 100 UNIT/ML X5UNITS SUBQ SCH (20:38)
[2022-01-06 02:14] LABS: Hematocrit 27.5 % (37.5-50.1); Hemoglobin 9.1 g/dL (12.9-16.9); Mean Corpuscular HGB Conc 33.1 g/dL (31.6-35.5); Mean Corpuscular Hemoglobin 31.6 pg (28.0-33.3); Mean Corpuscular Volume 95.5 fL (83.0-100.0); Mean Platelet Volume 10.5 fL (9.4-12.4); Platelet Count 116 K/mcL (140-400); Red Blood Count 2.88 M/mcL (4.19-5.50); Red Cell Distribution Width 15.7 % (11.5-14.5); White Blood Count 9.1 K/mcL (4.3-11.1)
[2022-01-06 02:32] LABS: Calcium 7.9 mg/dL (8.6-10.3); Magnesium 2.1 mg/dL (1.6-2.6); Potassium 4.3 mEq/L (3.5-5.1)
[2022-01-06] MEDS: Ipratropium/Albuterol Neb 3 ML IH SCH ×4 (03:53→22:39)
[2022-01-06] MEDS: Calcium Acetate 667 MG CAPSULE PO SCH ×3 (08:27→17:52)
[2022-01-06] MEDS: NIFEdipine XL (24 HR) 30 MG TAB.ER.24 PO SCH (08:27)
[2022-01-06] MEDS: Apixaban 5 MG TABLET PO SCH ×2 (08:27→20:03)
[2022-01-06] MEDS: Cholecalciferol (D-3) 1,000 UNIT (25MCG) TABLET PO SCH (08:27)
[2022-01-06] MEDS: Insulin LISPRO 300 UNITS/3 ML VIAL SUBQ SCH ×3 (08:28→17:48)
[2022-01-06] MEDS: *HR* OxyCODONE Immed Rel 5 MG TABLET PO PRN (08:39)
[2022-01-06] MEDS: Pregabalin 25 MG CAPSULE PO SCH (20:03)
[2022-01-06] MEDS: Insulin DETEMIR 100 UNIT/ML X5UNITS SUBQ SCH (20:04)
[2022-01-07 01:59] LABS: Hematocrit 28.9 % (37.5-50.1); Hemoglobin 9.5 g/dL (12.9-16.9); Mean Corpuscular HGB Conc 32.9 g/dL (31.6-35.5); Mean Corpuscular Hemoglobin 31.6 pg (28.0-33.3); Mean Platelet Volume 10.9 fL (9.4-12.4); Platelet Count 127 K/mcL (140-400); Red Blood Count 3.01 M/mcL (4.19-5.50); Red Cell Distribution Width 15.8 % (11.5-14.5); White Blood Count 10.9 K/mcL (4.3-11.1)
[2022-01-07 02:43] LABS: Calcium 8.5 mg/dL (8.6-10.3); Magnesium 2.3 mg/dL (1.6-2.6); Phosphorous 5.9 mg/dL (2.7-4.5); Potassium 4.8 mEq/L (3.5-5.1)
[2022-01-07] MEDS: Ipratropium/Albuterol Neb 3 ML IH SCH ×4 (04:34→21:52)
[2022-01-07] MEDS: Cholecalciferol (D-3) 1,000 UNIT (25MCG) TABLET PO SCH (07:56)
[2022-01-07] MEDS: Calcium Acetate 667 MG CAPSULE PO SCH ×3 (07:57→17:01)
[2022-01-07] MEDS: polyethylene glycoL 3350 17 GM POWD.PACK PO SCH (07:57)
[2022-01-07] MEDS: Insulin LISPRO 300 UNITS/3 ML VIAL SUBQ SCH ×3 (07:57→16:19)
[2022-01-07] MEDS: NIFEdipine XL (24 HR) 30 MG TAB.ER.24 PO SCH (07:57)
[2022-01-07] MEDS: Apixaban 5 MG TABLET PO SCH ×2 (07:57→20:31)
[2022-01-07] MEDS: Ondansetron 4 MG/2 ML VIAL IVP PRN ×2 (14:26→22:26)
[2022-01-07] MEDS: Pregabalin 25 MG CAPSULE PO SCH (20:30)
[2022-01-07] MEDS: Insulin DETEMIR 100 UNIT/ML X5UNITS SUBQ SCH (20:38)
[2022-01-08 02:56] LABS: Basophils % 0.2 %; Eosinophils % 0.3 %; Hematocrit 28.9 % (37.5-50.1); Hemoglobin 9.7 g/dL (12.9-16.9); Immature Granulocytes % 0.4 % (0-4); Lymphocytes # 0.3 K/mcL (0.6-4.6); Lymphocytes % 2.6 %; Mean Corpuscular HGB Conc 33.6 g/dL (31.6-35.5); Mean Corpuscular Hemoglobin 32.4 pg (28.0-33.3); Mean Corpuscular Volume 96.7 fL (83.0-100.0); Mean Platelet Volume 10.6 fL (9.4-12.4); Monocytes # 0.9 K/mcL (0.0-1.3); Monocytes % 8.8 %; Neutrophils # 9.4 K/mcL (1.6-8.9); Platelet Count 132 K/mcL (140-400); Red Blood Count 2.99 M/mcL (4.19-5.50); Red Cell Distribution Width 15.5 % (11.5-14.5); Segmented Neutrophils % 87.7 %; White Blood Count 10.7 K/mcL (4.3-11.1)
[2022-01-08 03:14] LABS: Calcium 8.7 mg/dL (8.6-10.3); Potassium 5.7 mEq/L (3.5-5.1)
[2022-01-08] MEDS: Ipratropium/Albuterol Neb 3 ML IH SCH ×4 (03:45→22:05)
[2022-01-08] MEDS ORDERED: 0.9 % Sodium Chloride 250 ML IVC PRN (07:28)
[2022-01-08] MEDS ORDERED: *HR* Heparin 10,000 UNIT/10 ML VIAL IV PRN (07:28)
[2022-01-08] MEDS ORDERED: 0.9 % Sodium Chloride 2,000 ML PRIME SCH (07:30)
[2022-01-08] MEDS: Insulin LISPRO 300 UNITS/3 ML VIAL SUBQ SCH ×3 (08:13→16:41)
[2022-01-08] MEDS: Apixaban 5 MG TABLET PO SCH ×2 (08:19→21:01)
[2022-01-08] MEDS: Cholecalciferol (D-3) 1,000 UNIT (25MCG) TABLET PO SCH (08:19)
[2022-01-08] MEDS: Calcium Acetate 667 MG CAPSULE PO SCH ×3 (08:19→16:41)
[2022-01-08] MEDS: polyethylene glycoL 3350 17 GM POWD.PACK PO SCH (08:20)
[2022-01-08] MEDS ORDERED: Nystatin Cream 15 GM TUBE TP PRN (16:23)
[2022-01-08 16:33] LABS: Adenovirus Not Detected (Not Detect); Bordetella Pertussis Not Detected (Not Detect); Chlamydophila pneumoniae Not Detected (Not Detect); Coronavirus 229E Not Detected (Not Detect); Coronavirus HKU1 Not Detected (Not Detect); Coronavirus NL63 Not Detected (Not Detect); Coronavirus OC43 Not Detected (Not Detect); Human Metapneumovirus Not Detected (Not Detect); Human Rhinovirus/Enterovirus Not Detected (Not Detect); Influenza A Subtype 2009 H1 Not Detected (Not Detect); Influenza B Not Detected (Not Detect); Mycoplasma pneumoniae Not Detected (Not Detect); Parainfluenza Virus 1 Not Detected (Not Detect); Parainfluenza Virus 2 Not Detected (Not Detect); Parainfluenza Virus 3 Not Detected (Not Detect); Parainfluenza Virus 4 Not Detected (Not Detect); Respiratory Syncytial Virus Not Detected (Not Detect); SARS-CoV-2 Not Detected (Not Detect)
[2022-01-08] MEDS: NIFEdipine XL (24 HR) 30 MG TAB.ER.24 PO SCH (16:40)
[2022-01-08] MEDS: Acetaminophen 325 MG TABLET PO PRN (16:41)
[2022-01-08 17:41] LABS: Basophils % 0.1 %; Eosinophils % 0.4 %; Hematocrit 29.1 % (37.5-50.1); Hemoglobin 9.5 g/dL (12.9-16.9); Immature Granulocytes % 0.2 % (0-4); Lymphocytes # 0.4 K/mcL (0.6-4.6); Lymphocytes % 3.7 %; Mean Corpuscular HGB Conc 32.6 g/dL (31.6-35.5); Mean Corpuscular Hemoglobin 31.3 pg (28.0-33.3); Mean Corpuscular Volume 95.7 fL (83.0-100.0); Mean Platelet Volume 10.8 fL (9.4-12.4); Monocytes # 0.9 K/mcL (0.0-1.3); Neutrophils # 8.1 K/mcL (1.6-8.9); Platelet Count 126 K/mcL (140-400); Red Blood Count 3.04 M/mcL (4.19-5.50); Red Cell Distribution Width 15.5 % (11.5-14.5); Segmented Neutrophils % 85.6 %; White Blood Count 9.4 K/mcL (4.3-11.1)
[2022-01-08 17:59] LABS: Calcium 8.6 mg/dL (8.6-10.3); Potassium 4.5 mEq/L (3.5-5.1)
[2022-01-08] MEDS: Insulin DETEMIR 100 UNIT/ML X5UNITS SUBQ SCH (21:01)
[2022-01-08] MEDS: Pregabalin 25 MG CAPSULE PO SCH (21:02)
[2022-01-09] MEDS: Ipratropium/Albuterol Neb 3 ML IH SCH ×4 (03:51→22:51)
[2022-01-09] MEDS: NIFEdipine XL (24 HR) 30 MG TAB.ER.24 PO SCH (09:03)
[2022-01-09] MEDS: polyethylene glycoL 3350 17 GM POWD.PACK PO SCH (09:03)
[2022-01-09] MEDS: Apixaban 5 MG TABLET PO SCH ×2 (09:04→20:12)
[2022-01-09] MEDS: Cholecalciferol (D-3) 1,000 UNIT (25MCG) TABLET PO SCH (09:05)
[2022-01-09] MEDS: Calcium Acetate 667 MG CAPSULE PO SCH ×3 (09:05→16:51)
[2022-01-09] MEDS: Insulin LISPRO 300 UNITS/3 ML VIAL SUBQ SCH ×3 (09:11→16:57)
[2022-01-09 10:03] LABS: Hemoglobin 8.9 g/dL (12.9-16.9); Mean Corpuscular Volume 97.1 fL (83.0-100.0); Mean Platelet Volume 11.5 fL (9.4-12.4); Platelet Count 128 K/mcL (140-400); Red Blood Count 2.78 M/mcL (4.19-5.50); Red Cell Distribution Width 15.4 % (11.5-14.5); White Blood Count 7.1 K/mcL (4.3-11.1)
[2022-01-09 10:13] LABS: Calcium 8.7 mg/dL (8.6-10.3); Magnesium 2.2 mg/dL (1.6-2.6); Potassium 4.7 mEq/L (3.5-5.1)
[2022-01-09 10:26] LABS: Amorphous Sediment,Urine Few per hpf (None-Few); Bacteria,Urine Few per hpf (None-Few); Bilirubin,Urine Negative (Negative); Blood,Urine Large (Negative); Clarity,Urine Turbid (Clear); Color,Urine Yellow (Yellow); Glucose,Urine (UA) 50 mg/dL (Normal); Ketones,Urine Negative (Negative); Leukocyte Esterase,Urine Small (Negative); Mucus,Urine Few per lpf (None-Few); Nitrite,Urine Negative (Negative); PH,Urine 6.5 pH Units (5.0-8.0); Protein,Urine >=300 mg/dL (Neg-Trace); RBC,Urine 50-100 per hpf (0-3); Specific Gravity,Urine 1.017 (1.010-1.025); Squamous Epithelial Cell,Urine Few per hpf (None-Few); Transitional Epi Cells,Urine Few per hpf (None-Few); Urobilinogen,Urine Normal (Normal); WBC,Urine 30-50 per hpf (0-3)
[2022-01-09 10:36] LABS: Phosphorous 4.7 mg/dL (2.7-4.5)
[2022-01-09 10:38] LABS: Lymphocytes # 0.7 K/mcL (0.6-4.6); Monocytes # 1.1 K/mcL (0.0-1.3); Neutrophils # 5.3 K/mcL (1.6-8.9); Platelet Estimate Decreased (Normal)
[2022-01-09] MEDS ORDERED: *HR* Heparin 10,000 UNIT/10 ML VIAL IV PRN (11:45)
[2022-01-09] MEDS ORDERED: 0.9 % Sodium Chloride 250 ML IVC PRN (11:45)
[2022-01-09] MEDS ORDERED: 0.9 % Sodium Chloride 2,000 ML PRIME SCH (11:45)
[2022-01-09] MEDS ORDERED: Vancomycin 1 EACH in 0.9 % Sodium Chloride 250 ML IVPB PRN (12:00)
[2022-01-09] MEDS ORDERED: levoFLOXacin 750 MG/150 ML 750 MG/150 ML BAG IVPB ONE (13:00)
[2022-01-09] MEDS ORDERED: Cefepime HCl 1,000 MG in 0.9 % Sodium Chloride Mini Bag 100 ML IVPB ONE (13:00)
[2022-01-09] MEDS ORDERED: *HR* Promethazine 25 MG/ML VIAL IM ONE (13:12)
[2022-01-09] MEDS ORDERED: Vancomycin 1,250 MG/262.5 ML IV.SOLN IVPB ONE (15:00)
[2022-01-09] MEDS: Ondansetron 4 MG/2 ML VIAL IVP PRN (16:53)
[2022-01-09] MEDS ORDERED: Cefepime HCl 1,000 MG in 0.9 % Sodium Chloride Mini Bag 100 ML IVPB SCH (19:00)
[2022-01-09] MEDS: Pregabalin 25 MG CAPSULE PO SCH (20:12)
[2022-01-09] MEDS: Insulin DETEMIR 100 UNIT/ML X5UNITS SUBQ SCH (20:13)
[2022-01-10] MEDS: Ipratropium/Albuterol Neb 3 ML IH SCH ×4 (04:11→22:43)
[2022-01-10 04:14] LABS: Basophils % 0.2 %; Eosinophils % 0.9 %; Hemoglobin 8.5 g/dL (12.9-16.9); Immature Granulocytes % 0.4 % (0-4); Lymphocytes # 0.5 K/mcL (0.6-4.6); Lymphocytes % 10.1 %; Mean Corpuscular HGB Conc 32.7 g/dL (31.6-35.5); Mean Corpuscular Hemoglobin 31.7 pg (28.0-33.3); Monocytes # 0.9 K/mcL (0.0-1.3); Platelet Count 129 K/mcL (140-400); Red Blood Count 2.68 M/mcL (4.19-5.50); Red Cell Distribution Width 15.3 % (11.5-14.5); Segmented Neutrophils % 68.4 %; White Blood Count 4.6 K/mcL (4.3-11.1)
[2022-01-10 04:29] LABS: Albumin 3.3 g/dL (3.5-5.7); Calcium 8.3 mg/dL (8.6-10.3); Neutrophils # 3.2 K/mcL (1.6-8.9); Phosphorous 3.7 mg/dL (2.7-4.5); Potassium 4.9 mEq/L (3.5-5.1)
[2022-01-10 05:04] LABS: Hypochromasia Present (Not Present); Platelet Estimate Slight Decrease (Normal)
[2022-01-10] MEDS: Insulin LISPRO 300 UNITS/3 ML VIAL SUBQ SCH ×3 (07:45→17:02)
[2022-01-10] MEDS: Calcium Acetate 667 MG CAPSULE PO SCH ×3 (08:15→17:00)
[2022-01-10] MEDS: Apixaban 5 MG TABLET PO SCH ×2 (08:16→22:02)
[2022-01-10] MEDS: Cholecalciferol (D-3) 1,000 UNIT (25MCG) TABLET PO SCH (08:16)
[2022-01-10] MEDS: NIFEdipine XL (24 HR) 30 MG TAB.ER.24 PO SCH (08:16)
[2022-01-10] MEDS: polyethylene glycoL 3350 17 GM POWD.PACK PO SCH (08:16)
[2022-01-10] MEDS: *HR* OxyCODONE Immed Rel 5 MG TABLET PO PRN ×2 (11:31→22:02)
[2022-01-10] MEDS: Acetaminophen 325 MG TABLET PO PRN (11:32)
[2022-01-10] MEDS ORDERED: Insulin DETEMIR 100 UNIT/ML X5UNITS SUBQ SCH (21:00)
[2022-01-10] MEDS: Pregabalin 25 MG CAPSULE PO SCH (22:02)
[2022-01-10] MEDS: Lactobacillus 1 EACH CAP.SPRINK PO SCH (22:02)
[2022-01-10] MEDS: Amoxicillin/Clavulanate 500 MG TABLET PO SCH (22:02)
[2022-01-10] MEDS: Doxycycline 100 MG CAPSULE PO SCH (22:02)
[2022-01-11] MEDS: Ipratropium/Albuterol Neb 3 ML IH SCH ×4 (03:46→22:16)
[2022-01-11 04:01] LABS: Basophils % 0.3 %; Eosinophils # 0.1 K/mcL (0.0-0.6); Eosinophils % 1.5 %; Hematocrit 26.2 % (37.5-50.1); Hemoglobin 8.6 g/dL (12.9-16.9); Immature Granulocytes % 0.3 % (0-4); Lymphocytes # 0.8 K/mcL (0.6-4.6); Lymphocytes % 12.9 %; Mean Corpuscular HGB Conc 32.8 g/dL (31.6-35.5); Mean Corpuscular Hemoglobin 31.5 pg (28.0-33.3); Mean Platelet Volume 11.1 fL (9.4-12.4); Monocytes # 1.1 K/mcL (0.0-1.3); Monocytes % 17.2 %; Neutrophils # 4.4 K/mcL (1.6-8.9); Platelet Count 155 K/mcL (140-400); Red Blood Count 2.73 M/mcL (4.19-5.50); Red Cell Distribution Width 14.8 % (11.5-14.5); Segmented Neutrophils % 67.8 %; White Blood Count 6.5 K/mcL (4.3-11.1)
[2022-01-11 04:25] LABS: Albumin 3.3 g/dL (3.5-5.7); Calcium 8.9 mg/dL (8.6-10.3); Magnesium 2.2 mg/dL (1.6-2.6); Phosphorous 4.2 mg/dL (2.7-4.5); Potassium 4.6 mEq/L (3.5-5.1)
[2022-01-11] MEDS ORDERED: *HR* Heparin 10,000 UNIT/10 ML VIAL IV PRN (07:29)
[2022-01-11] MEDS ORDERED: 0.9 % Sodium Chloride 250 ML IVC PRN (07:29)
[2022-01-11] MEDS ORDERED: 0.9 % Sodium Chloride 2,000 ML PRIME SCH (07:30)
[2022-01-11] MEDS: Insulin LISPRO 300 UNITS/3 ML VIAL SUBQ SCH ×3 (09:22→16:32)
[2022-01-11] MEDS: polyethylene glycoL 3350 17 GM POWD.PACK PO SCH (12:59)
[2022-01-11] MEDS: Calcium Acetate 667 MG CAPSULE PO SCH ×3 (12:59→16:55)
[2022-01-11] MEDS: Lactobacillus 1 EACH CAP.SPRINK PO SCH ×2 (13:12→20:17)
[2022-01-11] MEDS: NIFEdipine XL (24 HR) 30 MG TAB.ER.24 PO SCH (13:12)
[2022-01-11] MEDS: Apixaban 5 MG TABLET PO SCH ×2 (13:12→20:17)
[2022-01-11] MEDS: Cholecalciferol (D-3) 1,000 UNIT (25MCG) TABLET PO SCH (13:13)
[2022-01-11] MEDS: Doxycycline 100 MG CAPSULE PO SCH ×2 (13:13→20:17)
[2022-01-11] MEDS ORDERED: levoFLOXacin 500 MG/100 ML 500 MG/100 ML BAG IVPB SCH (16:00)
[2022-01-11] MEDS: Acetaminophen 325 MG TABLET PO PRN (16:32)
[2022-01-11] MEDS: *HR* OxyCODONE Immed Rel 5 MG TABLET PO PRN (20:16)
[2022-01-11] MEDS: Pregabalin 25 MG CAPSULE PO SCH (20:17)
[2022-01-11] MEDS: Amoxicillin/Clavulanate 500 MG TABLET PO SCH (20:17)
[2022-01-12] MEDS: Ipratropium/Albuterol Neb 3 ML IH SCH ×4 (03:59→21:32)
[2022-01-12 04:09] LABS: Basophils % 0.4 %; Eosinophils # 0.2 K/mcL (0.0-0.6); Eosinophils % 2.1 %; Hematocrit 27.1 % (37.5-50.1); Immature Granulocytes % 0.5 % (0-4); Lymphocytes # 0.9 K/mcL (0.6-4.6); Lymphocytes % 11.7 %; Mean Corpuscular HGB Conc 33.2 g/dL (31.6-35.5); Mean Corpuscular Hemoglobin 32.3 pg (28.0-33.3); Mean Corpuscular Volume 97.1 fL (83.0-100.0); Mean Platelet Volume 11.2 fL (9.4-12.4); Monocytes # 1.2 K/mcL (0.0-1.3); Monocytes % 16.3 %; Neutrophils # 5.2 K/mcL (1.6-8.9); Platelet Count 138 K/mcL (140-400); Red Blood Count 2.79 M/mcL (4.19-5.50)
[2022-01-12 04:19] LABS: White Blood Count 7.5 K/mcL (4.3-11.1)
[2022-01-12 04:27] LABS: Albumin 3.2 g/dL (3.5-5.7); Calcium 8.3 mg/dL (8.6-10.3); Magnesium 2.1 mg/dL (1.6-2.6); Potassium 4.5 mEq/L (3.5-5.1)
[2022-01-12] MEDS: NIFEdipine XL (24 HR) 30 MG TAB.ER.24 PO SCH (09:17)
[2022-01-12] MEDS: Doxycycline 100 MG CAPSULE PO SCH ×2 (09:18→22:22)
[2022-01-12] MEDS: Lactobacillus 1 EACH CAP.SPRINK PO SCH ×2 (09:18→22:22)
[2022-01-12] MEDS: Calcium Acetate 667 MG CAPSULE PO SCH ×3 (09:18→17:18)
[2022-01-12] MEDS: Cholecalciferol (D-3) 1,000 UNIT (25MCG) TABLET PO SCH (09:18)
[2022-01-12] MEDS: Insulin DETEMIR 100 UNIT/ML X5UNITS SUBQ SCH (09:21)
[2022-01-12] MEDS: Insulin LISPRO 300 UNITS/3 ML VIAL SUBQ SCH ×3 (09:21→17:18)
[2022-01-12] MEDS: Apixaban 5 MG TABLET PO SCH ×2 (09:21→22:22)
[2022-01-12] MEDS: polyethylene glycoL 3350 17 GM POWD.PACK PO SCH (09:22)
[2022-01-12] MEDS: Ondansetron 4 MG/2 ML VIAL IVP PRN (19:08)
[2022-01-12] MEDS: Pregabalin 25 MG CAPSULE PO SCH (22:23)
[2022-01-12] MEDS: Amoxicillin/Clavulanate 500 MG TABLET PO SCH (22:23)
[2022-01-13] MEDS: Ipratropium/Albuterol Neb 3 ML IH SCH ×4 (04:37→21:14)
[2022-01-13] MEDS ORDERED: 0.9 % Sodium Chloride 250 ML IVC PRN (08:05)
[2022-01-13] MEDS ORDERED: *HR* Heparin 10,000 UNIT/10 ML VIAL IV PRN (08:05)
[2022-01-13] MEDS: Apixaban 5 MG TABLET PO SCH ×2 (08:18→21:23)
[2022-01-13] MEDS: Insulin LISPRO 300 UNITS/3 ML VIAL SUBQ SCH ×3 (08:18→15:52)
[2022-01-13] MEDS: NIFEdipine XL (24 HR) 30 MG TAB.ER.24 PO SCH (08:18)
[2022-01-13] MEDS: Doxycycline 100 MG CAPSULE PO SCH ×2 (08:19→21:23)
[2022-01-13] MEDS: polyethylene glycoL 3350 17 GM POWD.PACK PO SCH (08:19)
[2022-01-13] MEDS: Cholecalciferol (D-3) 1,000 UNIT (25MCG) TABLET PO SCH (08:19)
[2022-01-13] MEDS: Lactobacillus 1 EACH CAP.SPRINK PO SCH ×2 (08:19→21:23)
[2022-01-13] MEDS: Insulin DETEMIR 100 UNIT/ML X5UNITS SUBQ SCH (08:19)
[2022-01-13] MEDS: Calcium Acetate 667 MG CAPSULE PO SCH ×3 (08:19→17:03)
[2022-01-13 10:24] LABS: Basophils % 0.5 %; Eosinophils # 0.2 K/mcL (0.0-0.6); Hematocrit 27.2 % (37.5-50.1); Hemoglobin 9.1 g/dL (12.9-16.9); Immature Granulocytes % 1.4 % (0-4); Lymphocytes # 0.6 K/mcL (0.6-4.6); Lymphocytes % 7.6 %; Mean Corpuscular HGB Conc 33.5 g/dL (31.6-35.5); Mean Corpuscular Volume 95.8 fL (83.0-100.0); Mean Platelet Volume 10.8 fL (9.4-12.4); Monocytes # 1.2 K/mcL (0.0-1.3); Neutrophils # 6.2 K/mcL (1.6-8.9); Platelet Count 158 K/mcL (140-400); Red Blood Count 2.84 M/mcL (4.19-5.50); Red Cell Distribution Width 15.1 % (11.5-14.5); Segmented Neutrophils % 74.5 %; White Blood Count 8.4 K/mcL (4.3-11.1)
[2022-01-13 10:46] LABS: Albumin 3.2 g/dL (3.5-5.7); Calcium 8.6 mg/dL (8.6-10.3); Phosphorous 3.8 mg/dL (2.7-4.5); Potassium 4.3 mEq/L (3.5-5.1)
[2022-01-13] MEDS ORDERED: Albumin 25% 25gram/100mL 25 GM/100 ML IV.SOLN IVPB ONE (11:24)
[2022-01-13 15:21] LABS: Influenza A PCR Negative (Negative); Influenza B PCR Negative (Negative); Resp. Syncytial Virus PCR Negative (Negative)
[2022-01-13 15:23] LABS: SARS-CoV-2 by PCR (In House) Negative (Negative)
[2022-01-13] MEDS: Amoxicillin/Clavulanate 500 MG TABLET PO SCH (21:22)
[2022-01-13] MEDS: Pregabalin 25 MG CAPSULE PO SCH (21:23)
[2022-01-13 23:41] VITALS: BP 132/68; PULSE 76; TEMP 98.6; O2SAT 97
[2022-01-14 01:01] LABS: Basophils % 0.1 %; Eosinophils % 0.1 %; Hematocrit 24.6 % (37.5-50.1); Hemoglobin 8.3 g/dL (12.9-16.9); Immature Granulocytes % 1.1 % (0-4); Lymphocytes # 0.7 K/mcL (0.6-4.6); Lymphocytes % 4.3 %; Mean Corpuscular HGB Conc 33.7 g/dL (31.6-35.5); Mean Platelet Volume 10.9 fL (9.4-12.4); Monocytes # 1.4 K/mcL (0.0-1.3); Monocytes % 8.1 %; Neutrophils # 14.7 K/mcL (1.6-8.9); Platelet Count 144 K/mcL (140-400); Red Blood Count 2.59 M/mcL (4.19-5.50); Red Cell Distribution Width 15.2 % (11.5-14.5); Segmented Neutrophils % 86.3 %
[2022-01-14 01:20] LABS: Albumin 3.3 g/dL (3.5-5.7); Calcium 8.2 mg/dL (8.6-10.3); Potassium 4.1 mEq/L (3.5-5.1)
[2022-01-14 01:21] LABS: Phosphorous 2.4 mg/dL (2.7-4.5)
== END 2022-01-14 02:20 | DRG 673 ==
LOC: 3ANU 17:13 → EMEROOARM 17:13 → SUATTDRO 20:25 → 3ANU 21:01 → SUATTDRO 12-20 08:03 → 2NNU 12-22 18:48 → ICNU 12-24 16:56 → 2ANU 12-26 15:45
PROVIDERS: ADMIT Internal Medicine; ATTEND Pharmacist
PROC: IRPERMA (2022-01-02 12:00)